=== PATIENT | male | born 1950 | race Caucasian/White ===

== ENCOUNTER 2016-10-04 11:44 | Inpatient (IN) ==
[~2016-10-04 11:44] MED LIST: Aminoglycoside Consult 1 EACH MC ONE
[2016-10-04 12:13] LABS: ABG Base Excess 9.3 mEq/L (-2.0 to 3.0); ABG HCO3 41.2 mEQ/L (21-27); ABG Oxygen Saturation 96 % (95-98); ABG PH 7.25 pH Units (7.32-7.45); ABG PO2 97 mmHg (85-104); ABG TCO2 44.1 mEq/L (20-26)
[2016-10-04 12:14] LABS: Blood Gas FiO2 45 %
[2016-10-04 12:17] LABS: ABG PCO2 94 mmHg (35-45)
--- NOTE | 2016-10-04 12:18 | Emergency Department Note ---
Disposition Clinical Impression: Acute exacerbation of chronic obstructive airways disease, Respiratory distress Cellulitis Qualifiers: Site of cellulitis: extremity Site of cellulitis of extremity: lower extremity Laterality: left Qualified Code(s): L03.116 - Cellulitis of left lower limb Disposition: Admitted As Inpatient Condition: Fair [facility]errals: [facility] [Primary Care Provider] - Forms: ED Satisfaction Letter SOB HPI - General Chief Complaint: ED Shortness of Breath/Dyspnea Stated Complaint: Respiratory Distress Time Seen by Provider: 10/04/16 11:55 Source: patient, EMS, other (Signout from [facility]) Mode of arrival: EMS Limitations: no limitations Nursing Notes Reviewed: Yes Vital Signs Reviewed: Yes - History of Present Illness She is a 66-year-old white male with a history of CHF as well as COPD who presents to the emergency department by EMS today sent from the [facility] in respiratory distress. Patient states for the last 4 days he has had gradually worsening shortness of breath occasional nonproductive cough and complaining of some generalized fatigue and weakness. Patient arrives by EMS on BiPAP but is awake alert and oriented 4, no acute deficits, and is denying any chest pain pressure or heaviness, no abdominal pain or flank pain his only complaint is shortness of breath which he is reporting on arrival much improved from when he presented at the [facility] initially. Patient denies any fevers or chills, no sore throat or difficult swallowing, no other associated symptoms. Reviewing medic report patient was diagnosed with CHF in the left alert shimmery ulcer, which is given steroids IV do an abscess prior to arrival to the ER here, had labs drawn including a negative troponin and a BNP that was elevated with 3+ bilateral lower extremity pitting edema. Patient reports in regards to his leg that he bumped it about 3 days ago states that it got swollen and warm and then broke open and he has had drainage from it and increased pain since that time. Patient denies any difficulty ambulating due to this swelling and pain. She states over the last 4 days he has been borrowing her brother's aerosol machine for an occasional breathing treatment that he normally does not have this for himself despite his history of COPD. - Related Data Allergies Allergy/AdvReac Type Severity Reaction Status Date / Time amitriptyline Allergy Anaphylaxis Verified 10/04/16 11:59 gabapentin Allergy Anaphylaxis Verified 10/04/16 11:59 pravastatin Allergy Anaphylaxis Verified 10/04/16 11:59 All systems ED: reviewed and negative except as stated. Constitutional: Denies: fever, chills Eyes: Denies: vision change ENT ED: Denies: ear pain, dental pain, dysphagia Cardiovascular: Reports: edema. Denies: chest pain, palpitations, dyspnea on exertion, orthopnea, syncope, paroxysmal nocturnal dyspnea Respiratory: Reports: cough, dyspnea, wheezes. Denies: hemoptysis, stridor, sputum production Gastrointestinal: Denies: abdominal pain, nausea, vomiting, diarrhea Genitourinary: Denies: urgency, dysuria, frequency Musculoskeletal: Denies: back pain, neck pain, joint swelling, arthralgia, myalgia Integumentary: Reports: rash, other (Open ulceration to the anterior left lower extremity.) Neurological: Denies: headache, weakness, numbness, paresthesias, confusion Psychiatric: Denies: anxiety, depression Hematological/Lymphatic: Denies: easy bleeding, easy bruising Past Medical History - Past Medical History Medical history: Reports: CHF, COPD, hepatitis, hypertension, peripheral artery disease Psychiatric history: Reports: anxiety, depression, PTSD - Social History Smoking Status: Current every day smoker Smokeless Tobacco Status: No Alcohol use: Reports: none Drug use: Reports: none Physical Exam - General Limitations: no limitations General appearance: alert, in distress, other (Patient arrives awake alert and oriented 4 with mild tachypnea and on BiPAP) - Head Head exam: atraumatic, normocephalic, normal inspection - Eye Eye exam: Present: normal appearance, PERRL, EOMI - ENT ENT exam: normal exam, normal oropharynx, mucous membranes moist - Neck Neck exam: Present: normal inspection, full ROM. Absent: lymphadenopathy, thyromegaly - Chest Chest inspection: Present: normal inspection, symmetric chest wall rise. Absent : tenderness, rash - Respiratory Respiratory exam: Present: respiratory distress, wheezes. Absent: accessory muscle use, prolonged expiratory phase - Cardiovascular Cardiovascular exam: Present: regular rate, normal rhythm, normal heart sounds - Abdominal Exam Abdominal exam: Present: soft, Non-Tender, normal bowel sounds - Extremities Exam Extremities exam: Present: full ROM, tenderness, normal capillary refill, pedal edema, other (Patient with 3+ pitting edema in the lower chimneys bilaterally area patient with an open ulceration to the mid left anterior tibia with surrounding erythema. No proximal streaking is noted. Compartments of the lower leg are soft) - Expanded Lower Extremity Exam Knee exam: Present: normal inspection Ankle exam: Present: normal inspection Neurovascular/Tendon exam: Present: normal capillary refill. Absent: pulse deficit, motor deficit, sensory deficit, tendon deficit Gait: not tested/not observed - Back Exam Back exam: Present: normal inspection. Absent: tenderness, CVA tenderness (R), CVA tenderness (L), paraspinal tenderness, vertebral tenderness - Neurological Exam Neurological exam: Present: alert, oriented X3, CN II-XII intact, reflexes normal. Absent: motor sensory deficit - Psychiatric Psychiatric exam: Present: normal affect, normal mood - Skin Skin exam: Present: warm, dry, intact, normal color Course Course Narrative: Patient was seen on arrival to the ED due to reports of respiratory distress in route. Patient had BiPAP in place on arrival but was communicating without conversational dyspnea, reporting that his breathing was much improved. Patient denied any other associated symptoms. Patient was placed on a laboratory monitor continuous pulse ox IV saline well was established prior to arrival here. Labs were drawn and sent portal chest x-ray was obtained and an EKG was obtained. Chin arrives hemodynamically stable with O2 sats at 98% on BiPAP. He was continued on BiPAP an ABG was obtained. - Reevaluation(s) Reevaluation #1: Patient's initial EKG the computer's calling an anterior [place]. We did a repeat scan showing [address] elevation in lead V3 which seems new from his prior EKG that was done earlier today at the [facility]. This does not meet criteria but I a.m. having the tech send the EKGs to the Radio Director currently to have the monkey keeper review them. It is 12:10 PM, patient is pain-free and denies any form of chest pain at this time. Reevaluation #2: To Dr. Lambert by phone who reviewed the EKGs and agrees that this does not meet criteria for an anterior STEMI and patient is asymptomatic with no abdominal pain chest pain pressure or heaviness. He agrees to hold off on any STEMI alert and is sending his mid-level down to evaluate the patient. I just checked on the patient again vital signs are stable his mentation is good he stating that he feels much better from a respiratory standpoint and again is denying any chest pain pressure or heaviness. Time: 12:32 Reevaluation #3: Patient continues to do well on BiPAP and his mental status has been stable throughout his ED course despite his elevated CO2 on his ABG. Patient actually states that his breathing feels "much better". Clinically I would contemplates switching him over to nasal cannula oxygen due to his retain CO2 all leave him on BiPAP at this time. Patient had blood cultures and wound cultures obtained. Antibiotics were initiated for his COPD exacerbation as well as his left lower extremity infection. Patient has remained hemodynamically stable throughout his ED course. Cardiology was consulate and saw the patient in the ED. I spoke with Dr. Lambert by phone and he agrees that the patient does not have criteria meeting STEMI and is pain-free at this time with serial troponins at 0.00. They will continue to follow patient. I spoke with the hospitalist who accepted the patient for admission and ongoing treatment. Vital Signs Temperature 98.1 F 10/04/16 11:47 Pulse Rate 83 10/04/16 11:47 Respiratory Rate 14 10/04/16 11:47 Blood Pressure 125/77 10/04/16 11:47 O2 Sat by Pulse Oximetry 98 10/04/16 11:47 Temperature 98.1 F 10/04/16 11:47 Pulse Rate 82 10/04/16 13:22 Respiratory Rate 18 10/04/16 13:22 Blood Pressure 125/77 10/04/16 13:22 O2 Sat by Pulse Oximetry 100 10/04/16 13:22 Oxygen Delivery Oxygen Delivery Bipap Shortness of Breath/Dyspnea - Medical Records Medical records reviewed: Yes I reviewed the patient's medical records. - Lab Data Lab results reviewed: Yes I reviewed the patient's lab results. Result diagrams: 10/04/16 12:15 10/04/16 12:15 Lab Results 10/04/16 10/04/16 10/04/16 Range/Units 12:07 12:15 12:15 WBC 11.4 H (4.3-11.1) K/mcL RBC 5.18 (4.19-5.50) M/mcL Hgb 15.6 (12.9-16.9) g/dL Hct 47.9 (37.5-50.1) % MCV 92.5 (83.0-100.0) fL MCH 30.1 (28.0-33.3) pg MCHC 32.6 (31.6-35.5) g/dL RDW 12.9 (11.5-14.5) % Plt Count 174 (140-400) K/mcL MPV 9.4 (9.4-12.4) fL Immature Gran % 0.4 (0-4) % Seg Neutrophils % 94.4 % Lymphocytes % 2.9 % Monocytes % 2.1 % Eosinophils % 0.0 % Basophils % 0.2 % Neutrophils # 10.8 H (1.6-8.9) K/mcL Lymphocytes # 0.3 L (0.6-4.6) K/mcL Monocytes # 0.2 (0.0-1.3) K/mcL Eosinophils # 0.0 (0.0-0.6) K/mcL Basophils # 0.0 (0.0-0.2) K/mcL PT (9.4-12.1) Seconds INR APTT (26.0-36.0) Seconds ABG pH 7.25 L (7.32-7.45) pH Units ABG pCO2 94 H* (35-45) mmHg ABG pO2 97 (85-104) mmHg ABG HCO3 41.2 H (21-27) mEQ/L ABG Total CO2 44.1 H (20-26) mEq/L ABG O2 Saturation 96 (95-98) % ABG Base Excess 9.3 H (-2.0 to 3.0) mEq/L Blood Gas Modality BIPAP Inspired O2 45 % Sodium 133 L (136-145) mEq/L Potassium 5.1 H (3.5-4.5) mEq/L Chloride 89 L (98-109) mEq/L Carbon Dioxide 37 H (19-29) mEq/L BUN 16 (8-26) mg/dL Creatinine 0.84 (0.72-1.25) mg/dL Est GFR ( Amer) > 60 (> 60) Est GFR (Non-Af Amer) > 60 (> 60) BUN/Creatinine Ratio 19 (6-26) Glucose 130 H (70-99) mg/dL POC Glucose (58-89) Calculated Osmolality 279 L (280-300) Lactic Acid (0.5-2.2) mmol/L Calcium 8.5 L (8.6-10.8) mg/dL Total Bilirubin 0.6 (0.2-1.2) mg/dL Direct Bilirubin 0.3 (0.0-0.5) mg/dL Indirect Bilirubin 0.3 (0.0-1.2) mg/dL AST 14 (5-34) Units/L ALT 21 (0-55) Units/L Alkaline Phosphatase 88 (38-126) Units/L Troponin I (0-0.03) ng/mL B-Natriuretic Peptide (0-100) pg/mL Serum Total Protein 7.3 (6.0-8.3) g/dL Albumin 3.3 L (3.5-5.0) g/dL Globulin 4.0 H (2.4-3.5) g/dL Albumin/Globulin Ratio 0.8 L (1.1-2.2) 10/04/16 10/04/16 10/04/16 Range/Units 12:15 12:15 12:15 WBC (4.3-11.1) K/mcL RBC (4.19-5.50) M/mcL Hgb (12.9-16.9) g/dL Hct (37.5-50.1) % MCV (83.0-100.0) fL MCH (28.0-33.3) pg MCHC (31.6-35.5) g/dL RDW (11.5-14.5) % Plt Count (140-400) K/mcL MPV (9.4-12.4) fL Immature Gran % (0-4) % Seg Neutrophils % % Lymphocytes % % Monocytes % % Eosinophils % % Basophils % % Neutrophils # (1.6-8.9) K/mcL Lymphocytes # (0.6-4.6) K/mcL Monocytes # (0.0-1.3) K/mcL Eosinophils # (0.0-0.6) K/mcL Basophils # (0.0-0.2) K/mcL PT (9.4-12.1) Seconds INR APTT (26.0-36.0) Seconds ABG pH (7.32-7.45) pH Units ABG pCO2 (35-45) mmHg ABG pO2 (85-104) mmHg ABG HCO3 (21-27) mEQ/L ABG Total CO2 (20-26) mEq/L ABG O2 Saturation (95-98) % ABG Base Excess (-2.0 to 3.0) mEq/L Blood Gas Modality Inspired O2 % Sodium (136-145) mEq/L Potassium (3.5-4.5) mEq/L Chloride (98-109) mEq/L Carbon Dioxide (19-29) mEq/L BUN (8-26) mg/dL Creatinine (0.72-1.25) mg/dL Est GFR ( Amer) (> 60) Est GFR (Non-Af Amer) (> 60) BUN/Creatinine Ratio (6-26) Glucose (70-99) mg/dL POC Glucose (58-89) Calculated Osmolality (280-300) Lactic Acid 1.1 (0.5-2.2) mmol/L Calcium (8.6-10.8) mg/dL Total Bilirubin (0.2-1.2) mg/dL Direct Bilirubin (0.0-0.5) mg/dL Indirect Bilirubin (0.0-1.2) mg/dL AST (5-34) Units/L ALT (0-55) Units/L Alkaline Phosphatase (38-126) Units/L Troponin I 0.00 (0-0.03) ng/mL B-Natriuretic Peptide 272 H (0-100) pg/mL Serum Total Protein (6.0-8.3) g/dL Albumin (3.5-5.0) g/dL Globulin (2.4-3.5) g/dL Albumin/Globulin Ratio (1.1-2.2) 10/04/16 10/04/16 Range/Units 12:15 12:43 WBC (4.3-11.1) K/mcL RBC (4.19-5.50) M/mcL Hgb (12.9-16.9) g/dL Hct (37.5-50.1) % MCV (83.0-100.0) fL MCH (28.0-33.3) pg MCHC (31.6-35.5) g/dL RDW (11.5-14.5) % Plt Count (140-400) K/mcL MPV (9.4-12.4) fL Immature Gran % (0-4) % Seg Neutrophils % % Lymphocytes % % Monocytes % % Eosinophils % % Basophils % % Neutrophils # (1.6-8.9) K/mcL Lymphocytes # (0.6-4.6) K/mcL Monocytes # (0.0-1.3) K/mcL Eosinophils # (0.0-0.6) K/mcL Basophils # (0.0-0.2) K/mcL PT 11.9 (9.4-12.1) Seconds INR 1.1 APTT 27.5 (26.0-36.0) Seconds ABG pH (7.32-7.45) pH Units ABG pCO2 (35-45) mmHg ABG pO2 (85-104) mmHg ABG HCO3 (21-27) mEQ/L ABG Total CO2 (20-26) mEq/L ABG O2 Saturation (95-98) % ABG Base Excess (-2.0 to 3.0) mEq/L Blood Gas Modality Inspired O2 % Sodium (136-145) mEq/L Potassium (3.5-4.5) mEq/L Chloride (98-109) mEq/L Carbon Dioxide (19-29) mEq/L BUN (8-26) mg/dL Creatinine (0.72-1.25) mg/dL Est GFR ( Amer) (> 60) Est GFR (Non-Af Amer) (> 60) BUN/Creatinine Ratio (6-26) Glucose (70-99) mg/dL POC Glucose 139 H (58-89) Calculated Osmolality (280-300) Lactic Acid (0.5-2.2) mmol/L Calcium (8.6-10.8) mg/dL Total Bilirubin (0.2-1.2) mg/dL Direct Bilirubin (0.0-0.5) mg/dL Indirect Bilirubin (0.0-1.2) mg/dL AST (5-34) Units/L ALT (0-55) Units/L Alkaline Phosphatase (38-126) Units/L Troponin I (0-0.03) ng/mL B-Natriuretic Peptide (0-100) pg/mL Serum Total Protein (6.0-8.3) g/dL Albumin (3.5-5.0) g/dL Globulin (2.4-3.5) g/dL Albumin/Globulin Ratio (1.1-2.2) - Radiology Data Radiology results reviewed: Yes I reviewed the patient's radiology results. Chest X-Ray 10/04/16 11:55 IMPRESSION: No acute cardiopulmonary disease. D/ / Syed Patel MD / Syed Patel MD Interpreting Provider: Syed Patel MD - EKG Data EKG attestation: Yes I reviewed and interpreted this EKG. EKG results narrative: Patient's first EKG was obtained at 11:59 AM, showing a normal sinus rhythm at 78 bpm with borderline [address] elevation isolated in V3. No reciprocal changes seen this was unchanged from prior EKG that was done earlier today at the [facility]. Due to some normality repeat EKG was obtained read at 12:15 PM showing a normal sinus rhythm with occasional sinus arrhythmia at [address] change isolated to V3. Critical Care Time Critical Care Time: Yes Total Critical Care Time: 35 Attestation: The high probability of a clinically significant, sudden or life threatening deterioration of the [resp] system(s) required my full and direct attention, intervention and personal management. The aggregate critical care time was [30] minutes. This time is in addition to time spent performing reported procedures but includes the following: [x] Data Review and interpretation [x] Patient assessment and monitoring of vital signs [x] Documentation [x] Medication orders and management
[2016-10-04 12:25] LABS: Basophils % 0.2 %; Hematocrit 47.9 % (37.5-50.1); Hemoglobin 15.6 g/dL (12.9-16.9); Immature Granulocytes % 0.4 % (0-4); Lymphocytes # 0.3 K/mcL (0.6-4.6); Lymphocytes % 2.9 %; Mean Corpuscular HGB Conc 32.6 g/dL (31.6-35.5); Mean Corpuscular Hemoglobin 30.1 pg (28.0-33.3); Mean Corpuscular Volume 92.5 fL (83.0-100.0); Mean Platelet Volume 9.4 fL (9.4-12.4); Monocytes # 0.2 K/mcL (0.0-1.3); Monocytes % 2.1 %; Neutrophils # 10.8 K/mcL (1.6-8.9); Platelet Count 174 K/mcL (140-400); Red Blood Count 5.18 M/mcL (4.19-5.50); Red Cell Distribution Width 12.9 % (11.5-14.5); Segmented Neutrophils % 94.4 %
[2016-10-04 12:29] LABS: INR 1.1; Prothrombin Time 11.9 Seconds (9.4-12.1)
[2016-10-04 12:32] LABS: Activated Partial Thrombo Time 27.5 Seconds (26.0-36.0)
[2016-10-04 12:39] LABS: Alanine Aminotransferase 21 Units/L (0-55); Albumin 3.3 g/dL (3.5-5.0); Albumin/Globulin Ratio 0.8 (1.1-2.2); Alkaline Phosphatase 88 Units/L (38-126); Aspartate Amino Transferase 14 Units/L (5-34); BUN/Creatinine Ratio 19 (6-26); Bilirubin,Direct 0.3 mg/dL (0.0-0.5); Bilirubin,Indirect 0.3 mg/dL (0.0-1.2); Bilirubin,Total 0.6 mg/dL (0.2-1.2); Blood Urea Nitrogen 16 mg/dL (8-26); Calcium 8.5 mg/dL (8.6-10.8); Carbon Dioxide 37 mEq/L (19-29); Chloride 89 mEq/L (98-109); Glucose 130 mg/dL (70-99); Osmolality,Calculated 279 (280-300); Potassium 5.1 mEq/L (3.5-4.5); Sodium 133 mEq/L (136-145); Total Protein 7.3 g/dL (6.0-8.3); eGFR For African Americans > 60 (> 60); eGFR For Non-African Americans > 60 (> 60)
--- NOTE | 2016-10-04 13:02 | Cardiology Consult Note ---
Date of Encounter: 10/04/16 Time of Encounter: 12:45 Assessment and Plan (1) Abnormal ECG Status: Acute Per Cardiology: Mild ST elevation noted in V1-V3 consistent with LVH-- ECG reviewed and discussed with Dr. Lambert, no cath warranted at this juncture. No previous ECG for comparison. Troponin negative this morning at the [facility] and currently negative 0.00 now. Denies any chest pain. Further recommendations pending echo. (2) SOB (shortness of breath) Status: Acute Per Cardiology: Reported increase in shortness of breath over the past one week. Has past history of COPD and reach records obstructive sleep apnea. Appears slightly improved with BiPAP. Further management per primary service. (3) COPD exacerbation Status: Acute Per Cardiology: Suspected acute on chronic COPD exacerbation. Again, management per primary service. (4) Edema Status: Acute Per Cardiology: Reported worsening bilateral lower extremity edema, however also reported altered on weight loss. Reportedly takes Lasix 60 mg by mouth daily at home and history of CHF. No previous echo available for review. Kidney function currently stable. Does have significant pitting edema. BNP from [facility] noted to be 2368, however BMP at [facility] 272. We'll give IV Lasix 40 mg 1 now. We'll check echo. Qualifiers: Edema type: unspecified Qualified Code(s): R60.9 - Edema, unspecified (5) Leg ulcer, left Status: Acute Per Cardiology: Apparent new development of left medial leg ulcer. According to records history of PAD, however patient denies any procedures. Rec consult wound care. Qualifiers: Non-pressure ulcer stage: unspecified non-pressure ulcer stage Qualified Code(s): L97.929 - Non-pressure chronic ulcer of unspecified part of left lower leg with unspecified severity (6) Nicotine abuse Status: Chronic Per Cardiology: History of smoking half a pack per day for 40 years. Recommend smoking cessation. Discussion w patient/family: The assessment and plan as outlined above was discussed with the patient and/or family members who expressed understanding and agreement. All questions were answered. Thank you for involving us in the care of your patient. Please call with any questions. History of Present Illness Consult date: 10/04/16 Consult reason: SOB, Abnormal ECG Chief complaint: SOB, Leg sore History of present illness: Mr. Nesbitt is a 66 year old male with a relevant past medical history of COPD, nicotine abuse-- reported he smokes a half a pack per day for 40 years, CHF on Lasix 60 mg by mouth daily at home, hypertension, anxiety, depression, PTSD, according to records alcohol abuse, substance abuse, and history of hepatitis-- patient denies any alcohol use, any recreational drug use, and any awareness to hepatitis. Patient reports negative stress test about 3 years ago. No known history of CAD. Cardiology consult for short of breath, abnormal ECG, and worsening edema. The patient initially confused onto his current location -- was aware to person and year. Reports lives in [place] and brought to the [facility] for worsening shortness of breath. He was unaware of transfer to [facility]. Patient reports increased shortness of breath at rest and exertion over the past one week. He also reports increased swelling to bilateral lower extremities with "Lasix not making me pee the past few days". He denies any chest pain currently or in the past 2 weeks. He denies any palpitations, syncope, falls. Reports some mild lightheadedness. He denies any history of TIA or stroke. He denies any active bleeding or blood loss. Denies any recent fever, chills, nausea, vomiting diarrhea. Reports nonproductive cough. Does not utilize oxygen at home. Reports left leg wound developed about 3 days ago when he bumped against a piece of furniture. He denies any diabetes. He does report about a 12 pound weight loss unintentionally over the past one month, however does report increased swelling to bilateral lower extremities. Past Med Surg Social Fam HX - Past Medical History Attestation: Yes The following information was validated with the patient. Source: patient, old records reviewed Medical history: CHF, COPD, hepatitis, hypertension, peripheral artery disease Psychiatric history: anxiety, depression, PTSD - Social History Smoking Status: Current every day smoker Packs per day: 1/2 ppd for 40 years Smokeless Tobacco Status: No Alcohol use: none Drug use: none Medications and Allergies 3 Allergy/AdvReac Type Severity Reaction Status Date / Time amitriptyline Allergy Anaphylaxis Verified 10/04/16 11:59 gabapentin Allergy Anaphylaxis Verified 10/04/16 11:59 pravastatin Allergy Anaphylaxis Verified 10/04/16 11:59 All Systems Review: A 10-system review of systems was performed and is negative for pertinent findings except as documented above in the HPI. - Constitutional Constitutional: weight loss - Cardiovascular Cardiovascular: as per HPI, dyspnea at rest, dyspnea on exertion, leg edema, lightheadedness - Respiratory Respiratory: cough, dyspnea - Integumentary Integumentary: other (foot wound from 3 days ago) Physical Examination Vital Signs, Last 4 Hours Temp Pulse Resp BP Pulse Ox 10/04/16 11:56 18 99 10/04/16 11:47 98.1 F 83 14 125/77 98 General: Conversant HEENT: Atraumatic, Normocephaly, Mucus Membranes Moist Cardiac: Reg Rate and Rhythm, Normal S1 and S2, No Murmur Lungs: Other (Seen today on BiPAP, conversational dyspnea noted, breath sounds diminished throughout, respirations mild labored at rest, scattered rhonchi throughout) Neuro: Alert and responsive, No focal deficits noted Abdomen: Soft, Non-Tender, Other (Non-strangulated umbilical hernia noted) Skin: Other (Left lower extremity erythematous, dusky colored, quarter-sized open wound noted to left medial lower extremity) Musculoskeletal: No Chest Wall Tenderness Extremities: Other (Bilateral lower extremities with edema-- +2 pitting R RLE, + 2-3 pitting to left lower extremity) Results 10/04/16 12:15 10/04/16 12:15 Lab Results Laboratory Tests 10/04/16 10/04/16 12:07 12:15 WBC 11.4 H Hgb 15.6 Hct 47.9 Plt Count 174 ABG pH 7.25 L ABG pCO2 94 H* ABG pO2 97 ABG HCO3 41.2 H Blood Gas Modality BIPAP Inspired O2 45 Laboratory Tests 10/04/16 10/04/16 10/04/16 12:15 12:15 12:15 INR Creatinine 0.84 Est GFR (Non-Af Amer) > 60 Glucose 130 H AST 14 ALT 21 Troponin I 0.00 B-Natriuretic Peptide 272 H 10/04/16 12:15 INR 1.1 Creatinine Est GFR (Non-Af Amer) Glucose AST ALT Troponin I B-Natriuretic Peptide ITS Impressions Chest X-Ray 10/04/16 11:55 IMPRESSION: No acute cardiopulmonary disease. D/ / Syed Patel MD / Syed Patel MD Interpreting Provider: Syed Patel MD - Imaging and Cardiology Chest Xray: report reviewed Echo: pending - EKG Interpretation EKG results cardiology: personally reviewed (Very mild ST elevation noted in V1 through V3, ECG reviewed by Dr. Lambert with no recs for equipment operator/laborer/supervisor activation, no previous ECGs available for comparison, currently sinus rhythm on telemetry) Consult Discharge Plan - Plan
[2016-10-04] MEDS ORDERED: Furosemide 40 MG/4 ML VIAL IVP ONE (13:09)
[2016-10-04] MEDS ORDERED: Levofloxacin 500 MG/100 ML 500 MG/100 ML BAG IVPB ONE (13:18)
[2016-10-04] MEDS ORDERED: Vancomycin 1,000 MG in D5% in Water 250 ML IVPB ONE (13:19)
--- NOTE | 2016-10-04 14:45 | Internal Med History&Physical ---
<Osman Johnson - Last Filed: 10/04/16 18:12> Date of Encounter: 10/04/16 Time of Encounter: 15:01 Assessment and Plan (1) COPD exacerbation Current visit: Yes Status: Acute increased SOB x4-5 days. CXR: no acute process Plan: azithromycin PO patient was on steroid taper at home, will continue PO steroid taper scheduled DuoNebs (2) Cellulitis Current visit: Yes Status: Acute patient has history of PVD. on exam, left lower extremity appears cyanotic and cold, pulses could not be felt. 2x3cm wound present on left bailey anteriorly, no crepitus appreciated. Plan: appreciate vascular surgery consult vancomycin- pharmacy to dose left lower extremity wound cultures pending. blood cultures pending. MILADYS pending. (3) Leg ulcer, left Current visit: Yes Status: Acute plan as above. (4) Abnormal ECG Current visit: Yes Status: Acute upon arrival, EKG showed ST changes. troponin at [facility] was negative. Appreciate cardiology input per cardiology, no cath warranted at this time. no chest pain at this time. Plan: echo pending. trend troponins and monitor (5) Nicotine abuse Current visit: Yes Status: Chronic smoking cesation advised. nicotine patch PRN (6) MAC (obstructive sleep apnea) Current visit: Yes Status: Acute continue BiPAP at night. (7) DVT prophylaxis Current visit: Yes Status: Acute heparin SQ Internal Medicine - H&P: HPI Chief complaint: shortness of breath Admitted From: Emergency Dept Plans for Post Hospital Care: Home History of present illness: Mr. Nesbitt is a 66 year old male with PMHx of COPD (not on home oxygen), tobacco use, CHF, history of hepatitis, HTN, peripheral vascular disease. patient lives by himself at home. he was admitted to [facility] as a transfer from the [facility] for chief complaint of shortness of breath. patient states that he was having shortness of breath with minimal exertion for 4-5 days that has been getting progressively worse. he also reports left leg pain. patient denies chest pain, cough, hemoptysis. he does smoke and has smoked for about 40 years, 1/2 packs per day. he denies nausea, vomiting, diarrhea, fever, chills, hemoptysis, blood in stools, and denies blood in urine. 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 Patient states that recent sick contacts include his son, who had bronchitis about a month ago. he has not been on any antibiotics recently. Past Med Surg Social Fam HX - Past Medical History Medical history: CHF, COPD, hepatitis, hypertension, peripheral artery disease Psychiatric history: anxiety, depression, PTSD - Social History Smoking Status: Current every day smoker Packs per day: 1/2 ppd for 40 years Smokeless Tobacco Status: No Alcohol use: none Drug use: none Internal Medicine - H&P: Meds Allopurinol [Zyloprim 100 MG] 100 mg PO DAILY 10/04/16 [History] Atorvastatin Calcium [Lipitor] 20 mg PO HS 10/04/16 [History] Ipratropium/Albuterol Neb [Duoneb] 3 ml IH Q6HR PRN 10/04/16 [History] Losartan Potassium [Cozaar] 50 mg PO BID 10/04/16 [History] Mupirocin [Bactroban Oint] 1 appl TP AD 10/04/16 [History] Tacrolimus [Protopic] 1 appl TP AD 10/04/16 [History] hydroCHLOROthiazide [Hydrochlorothiazide] 12.5 mg PO DAILY 10/04/16 [History] predniSONE [PredniSONE] 5 mg PO AD 10/04/16 [History] 3 Allergy/AdvReac Type Severity Reaction Status Date / Time amitriptyline Allergy Anaphylaxis Verified 10/04/16 14:24 gabapentin Allergy Anaphylaxis Verified 10/04/16 14:24 pravastatin Allergy Anaphylaxis Verified 10/04/16 14:24 All Systems PM: A 10-system review of systems was performed and is negative for pertinent findings except as documented above in the HPI. - Constitutional Constitutional: as per HPI - EENT Eyes: as per HPI Ears: as per HPI Nose, mouth and throat: as per HPI - Breasts Breasts: as per HPI - Cardiovascular Cardiovascular ROS IM: as per HPI - Respiratory Respiratory: as per HPI - Gastrointestinal Gastrointestinal: as per HPI - Genitourinary Genitourinary ROS male: as per HPI - Musculoskeletal Musculoskeletal ROS IM: as per HPI - Integumentary Integumentary IM: as per HPI - Neurological Neurological ROS: as per HPI - Psychiatric Psychiatric: as per HPI - Endocrine Endocrine IM: as per HPI - Hematologic/Lymphatic Hematologic/Lymphatic: as per HPI - Allergic/Immunologic Allergic/Immunologic: as per HPI - Constitutional Vitals: Temp Pulse Resp BP Pulse Ox 97.6 F 80 15 129/72 98 10/04/16 14:31 10/04/16 14:31 10/04/16 14:31 10/04/16 14:31 10/04/16 14:31 General appearance: Present: A&O X 3, no acute distress, answers questions appropriately - Head Head exam: Present: atraumatic, normocephalic - Neck Neck exam general surgery: Present: supple, trachea midline - Respiratory Respiratory exam: Present: decreased breath sounds - Cardiovascular Cardiovascular exam: Present: RRR, +S1, +S2 - GI/Abdominal Additional comments: abdominal hernia present above umbillicus. - Extremities Exam Extremities exam: Present: cyanotic (cyanosis present on left leg) Additional comments: left leg has [id number] wound present on the antior bailey that has yellwo colored pus coming out. left leg is cyanotic. both bilateral lower extremities feel cold. pulses could not be palpated. +2 bilateral lower extremity pitting edema present. - Neurological Exam Neurological exam: Present: alert, oriented X3, no focal deficits - Psychiatric Psychiatric exam: Present: normal affect, normal mood Internal Med - H&P Results - Labs CBC & Chem 7: 10/04/16 12:15 10/04/16 12:15 <Willem Noguera P - Last Filed: 10/04/16 18:25> Date of Encounter: 10/04/16 Internal Medicine - H&P: HPI History of present illness: Mr. Nesbitt is a 66 year old male All Systems PM: A 10-system review of systems was performed and is negative for pertinent findings except as documented above in the HPI. - Constitutional Vitals: Temp Pulse Resp BP Pulse Ox 97.6 F 80 15 129/72 98 10/04/16 14:31 10/04/16 14:31 10/04/16 14:31 10/04/16 14:31 10/04/16 14:31 Internal Med - H&P Results - Labs CBC & Chem 7: 10/04/16 12:15 10/04/16 12:15 - Attending Attestation I examined this patient and my medical decision-making was reviewed with the Resident Physician. I agree with the documented findings, disposition and treatment plan as described except to the extent set forth below.
[2016-10-04] MEDS ORDERED: Ipratropium/Albuterol Neb 3 ML IH PRN (15:25)
[2016-10-04] MEDS ORDERED: Acetaminophen 325 MG TABLET PO PRN (15:28)
[2016-10-04] MEDS ORDERED: Nicotine 7 MG PATCH.TD24 TD PRN (15:42)
[2016-10-04] MEDS ORDERED: Vancomycin 1,250 MG in D5% in Water 250 ML IVPB SCH ×2 (16:00→23:30)
[2016-10-04] MEDS ORDERED: predniSONE 5 MG TABLET PO SCH (18:15)
--- NOTE | 2016-10-04 18:18 | Vascular/Endovasc Consult Note ---
<Stephen Skinner - Last Filed: 10/05/16 09:35> Date of Encounter: 10/05/16 Time of Encounter: 04:45 Assessment and Plan (1) Leg ulcer, left Current Visit: Yes Status: Acute ABIs 0.97 R, 0.76 L Chronic PVD, not concerned for acute cold leg Continue IV abx for surrounding cellulitis Wound cultures sent Local wound care Qualifiers: Non-pressure ulcer stage: unspecified non-pressure ulcer stage Qualified Code(s): L97.929 - Non-pressure chronic ulcer of unspecified part of left lower leg with unspecified severity (3) Cellulitis Current Visit: Yes Status: Acute See plan of care above Qualifiers: Site of cellulitis: extremity Site of cellulitis of extremity: lower extremity Laterality: left Qualified Code(s): L03.116 - Cellulitis of left lower limb - History of Present Illness Consult date: 10/04/16 Consult reason: Cold LLE with cellulitis Chief complaint: SOB History of present illness: Cordell Nesbitt is a 66 yo male with an extensive PMH including, COPD, CHF, hepatitis, HTN, and PVD who presents to [facility] with chief complaint of SOB. We are consulted for cold LLE with cellulitis. Patient states that he has not seen a doctor in some time and has stopped taking all home medications. He states that about 1 week ago he struck his bailey against some living room furniture, which left a wound on his left lower bailey. The area surrounding the wound grew red and it started draining serous fluid. He admits to chronic edema related to CHF and chronic neuropathy of both feet. He denies weakness of any extremity. He admits to SOB and denies CP. Past Med Surg Social Fam HX - Past Medical History Medical history: CHF, COPD, hepatitis, hypertension, peripheral artery disease Psychiatric history: anxiety, depression, PTSD - Social History Smoking Status: Current every day smoker Packs per day: 1/2 ppd for 40 years Smokeless Tobacco Status: No Alcohol use: none Drug use: none Medications and Allergies Allopurinol [Zyloprim 100 MG] 100 mg PO DAILY 10/04/16 [History] Atorvastatin Calcium [Lipitor] 20 mg PO HS 10/04/16 [History] Ipratropium/Albuterol Neb [Duoneb] 3 ml IH Q6HR PRN 10/04/16 [History] Losartan Potassium [Cozaar] 50 mg PO BID 10/04/16 [History] Mupirocin [Bactroban Oint] 1 appl TP AD 10/04/16 [History] Tacrolimus [Protopic] 1 appl TP AD 10/04/16 [History] hydroCHLOROthiazide [Hydrochlorothiazide] 12.5 mg PO DAILY 10/04/16 [History] predniSONE [PredniSONE] 5 mg PO AD 10/04/16 [History] 3 Allergy/AdvReac Type Severity Reaction Status Date / Time amitriptyline Allergy Anaphylaxis Verified 10/04/16 14:24 gabapentin Allergy Anaphylaxis Verified 10/04/16 14:24 pravastatin Allergy Anaphylaxis Verified 10/04/16 14:24 All Systems Review: A 10-system review of systems was performed and is negative for pertinent findings except as documented above in the HPI. - Vascular Vascular: lower extremity swelling, lower extremity ulcers, lower extremity discoloration, lower extremity coldness - Integumentary Integumentary: erythema, swelling Exam Vital Signs, Last 4 Hours Temp Pulse Resp BP Pulse Ox 10/04/16 14:31 97.6 F 80 15 129/72 98 10/04/16 14:17 18 122/78 Vascular: Present: Pulse, absent (b/l LEs), Edema (extensive, all extremities), Other (venous stasis changes) Skin: Present: Wound/ulcer(s) (2-3 cm diameter lesion on medial surface of L bailey, draining some serous fluid. Erythema of the surrounding area with increased warmth) Consult Discharge Plan - Plan [facility]errals: [facility] [Primary Care Provider] - <Michael Ferrer - Last Filed: 10/05/16 10:15> Date of Encounter: 10/05/16 - History of Present Illness History of present illness: Mr. Nesbitt is a 66 year old male All Systems Review: A 10-system review of systems was performed and is negative for pertinent findings except as documented above in the HPI. Exam Vital Signs, Last 4 Hours Temp Pulse Resp BP Pulse Ox 10/05/16 06:32 97.4 F L 84 14 118/64 94 - Attending Attestation I examined this patient and my medical decision-making was reviewed with the Resident Physician. I agree with the documented findings, disposition and treatment plan as described except to the extent set forth below. The patient is seen and evaluated on morning rounds. The patient has mild decrease in ankle-brachial index. He has findings consistent with acute venous stasis ulcer in a field of chronic venous hypertension on the left lower extremity. He would best be treated with an Unna boot with extrinsic compression making this a [place] boot. Aggressive leg elevation will also be required. I will be glad to follow him in wound clinic. Michael Ferrer MD FACS
[2016-10-04] MEDS ORDERED: Azithromycin 250 MG TABLET PO SCH (18:30)
[2016-10-04] MEDS: *HR* Heparin 5,000 UNIT/ML VIAL SQ SCH (18:40)
[2016-10-04] MEDS ORDERED: NON-FORMULARY MEDICATION 1 EACH EACH (Losartan Potassium [Cozaar] 50 MG) PO SCH (21:00)
[2016-10-04] MEDS ORDERED: Budesonide/Formoterol 80/4.5 MDI IH SCH (22:00)
[2016-10-04] MEDS: Ipratropium/Albuterol Neb 3 ML IH SCH (22:46)
[2016-10-05 01:56] LABS: Basophils % 0.1 %; Hematocrit 46.8 % (37.5-50.1); Hemoglobin 14.8 g/dL (12.9-16.9); Immature Granulocytes % 0.3 % (0-4); Lymphocytes # 0.5 K/mcL (0.6-4.6); Lymphocytes % 5.2 %; Mean Corpuscular HGB Conc 31.6 g/dL (31.6-35.5); Mean Corpuscular Hemoglobin 29.5 pg (28.0-33.3); Mean Corpuscular Volume 93.2 fL (83.0-100.0); Mean Platelet Volume 9.5 fL (9.4-12.4); Monocytes # 0.9 K/mcL (0.0-1.3); Monocytes % 8.9 %; Neutrophils # 8.5 K/mcL (1.6-8.9); Platelet Count 166 K/mcL (140-400); Red Blood Count 5.02 M/mcL (4.19-5.50); Red Cell Distribution Width 12.6 % (11.5-14.5); Segmented Neutrophils % 85.5 %
[2016-10-05 02:06] LABS: BUN/Creatinine Ratio 22 (6-26); Blood Urea Nitrogen 15 mg/dL (8-26); Calcium 8.7 mg/dL (8.6-10.8); Carbon Dioxide 38 mEq/L (19-29); Chloride 91 mEq/L (98-109); Glucose 125 mg/dL (70-99); Osmolality,Calculated 284 (280-300); Sodium 136 mEq/L (136-145); eGFR For African Americans > 60 (> 60); eGFR For Non-African Americans > 60 (> 60)
[2016-10-05] MEDS: Ipratropium/Albuterol Neb 3 ML IH SCH ×3 (03:45→10:45)
[2016-10-05] MEDS: *HR* Heparin 5,000 UNIT/ML VIAL SQ SCH (06:17)
[2016-10-05 06:37] VITALS: BP 118/64
[2016-10-05] MEDS ORDERED: Albuterol 2.5 MG/3 ML NEBULIZER IH PRN (08:00)
[2016-10-05] MEDS ORDERED: methylPREDNISolone 125 MG/2 ML VIAL IVP SCH (08:00)
[2016-10-05] MEDS ORDERED: ceFAZolin 2,000 MG in D5% in Water 100 ML IVPB SCH (08:02)
[2016-10-05 08:28] LABS: ABG HCO3 45.3 mEQ/L (21-27); ABG Oxygen Saturation 88 % (95-98); ABG PO2 60 mmHg (85-104); ABG TCO2 48.1 mEq/L (20-26)
[2016-10-05 08:31] LABS: Blood Gas FiO2 36 %
[2016-10-05 08:32] LABS: ABG PCO2 92 mmHg (35-45)
--- NOTE | 2016-10-05 08:42 | Cardiology Progress Note ---
Date of Encounter: 10/05/16 Time of Encounter: 08:00 Assessment and Plan (1) Abnormal ECG Current Visit: Yes Status: Acute Per Cardiology: -Mild ST elevation noted in V1-V3 consistent with LVH-- ECG reviewed and discussed with Dr. Lambert, no cath warranted at this juncture. -No previous ECG for comparison. -Troponin negative x 3 at [facility], negative at CT. -Denies any chest pain. -Echo 10/04/16 with LVEF 60%, not all myocardial segments well visualized due to patient uncooperative during testing, mild diastolic dysfunction, RV not well visualized however appears mildly dilated with normal function, mild MR, mild PH, all wall segments with normal motion. -Telemetry reviewed with average HR 84, sinus rhythm. Runs of atrial tachycardia noted, strips reviewed with . -Cardiology will sign off and will follow in outpatient setting. Follow up set. (2) COPD exacerbation Current Visit: Yes Status: Acute Per Cardiology: -Suspected acute on chronic COPD exacerbation. -Management per primary service. (3) Edema Current Visit: Yes Status: Acute Per Cardiology: -1+ bilateral lower extremity pitting edema noted, states about baseline. -Was given IV lasix x1 yesterday. Net negative 90ml this admission. -Will start home lasix dose of 60mg daily. Qualifiers: Edema type: unspecified Qualified Code(s): R60.9 - Edema, unspecified (4) Leg ulcer, left Current Visit: Yes Status: Acute Per Cardiology: -Apparent new development of left medial leg ulcer. -According to records history of PAD, however patient denies any procedures. -Vascular following. -Management per primary and vascular services. Qualifiers: Non-pressure ulcer stage: unspecified non-pressure ulcer stage Qualified Code(s): L97.929 - Non-pressure chronic ulcer of unspecified part of left lower leg with unspecified severity (5) Nicotine abuse Current Visit: Yes Status: Chronic Per Cardiology: -History of smoking half a pack per day for 40 years. -Recommended smoking cessation with patient and education given. Discussion w patient/family: The assessment and plan as outlined above was discussed with the patient who expressed understanding and agreement. All questions were answered. Thank you for involving us in the care of your patient. Please call with any questions. Discussed and reviewed with . Subjective Principal diagnosis: COPD exacerbation Interval history: Patient states he feels better this morning. Patient denies chest pain or shortness of breath. Patient states breathing is much improved since admission. Patient admits to congested cough, however states is non-productive. Objective Vital Signs, Last 4 Hours Temp Pulse Resp BP Pulse Ox 10/05/16 06:32 97.4 F L 84 14 118/64 94 General: Conversant, No Apparent Distress HEENT: Atraumatic, Normocephaly, Mucus Membranes Moist Neck: No JVD, Normal carotid pulses Cardiac: Reg Rate and Rhythm, Normal S1 and S2, No Murmur Lungs: Other (Bilateral lower lobes with rhonchi and expiratory wheezes. ) Neuro: Alert and responsive, No focal deficits noted Abdomen: Soft, Non-Tender Skin: Other (Bilateral lower extremities with discoloration noted. ) Musculoskeletal: No Chest Wall Tenderness Extremities: No Clubbing, No Cyanosis, Other (Bilateral lower extremity 1+ pitting edema noted. ) Results 10/05/16 01:05 10/05/16 01:05 Lab Results Impressions Chest X-Ray 10/04/16 11:55 IMPRESSION: No acute cardiopulmonary disease. D/ / Syed Patel MD / Syed Patel MD Interpreting Provider: Syed Patel MD Active Medications Acetaminophen (Tylenol) 650 mg PO Q6HR PRN PRN Reason: Pain Stop: 04/05/17 15:29 Albuterol Sulfate (Proventil Neb) 2.5 mg IH Q2H PRN; Protocol PRN Reason: Shortness Of Breath/Wheezing Stop: 04/06/17 08:01 Albuterol/Ipratropium (Duoneb) 3 ml IH QIDR LANA PRN Reason: Protocol Stop: 04/06/17 11:01 Allopurinol (Zyloprim) 100 mg PO DAILY [facility] Stop: 04/06/17 09:01 Atorvastatin Calcium (Lipitor) 20 mg PO HS [facility] Stop: 04/05/17 21:01 Last Admin: 10/04/16 21:58 Dose: Not Given Azithromycin (Zithromax) 500 mg PO Q24H [facility] Stop: 04/05/17 18:31 Last Admin: 10/04/16 18:40 Dose: 500 mg Guaifenesin (Mucinex) 600 mg PO BID [facility] Stop: 10/11/16 21:01 Heparin Sodium (Porcine) (Heparin) 5,000 unit SQ Q12HCO [facility] Stop: 04/05/17 18:01 Last Admin: 10/05/16 06:17 Dose: 5,000 unit Cefazolin Sodium 2,000 mg/ (Dextrose) 100 mls @ 200 mls/hr IVPB Q8HR LANA PRN Reason: Protocol Stop: 04/06/17 08:03 Methylprednisolone (Solu-Medrol) 60 mg IVP Q8HR [facility] Stop: 04/06/17 08:01 Nicotine (Nicoderm) 7 mg TD Q24H PRN; Protocol PRN Reason: nicotine craving Stop: 04/05/17 15:43 - Imaging and Cardiology Chest Xray: report reviewed Echo: report reviewed - EKG Interpretation EKG results cardiology: personally reviewed (ECG with SR, HR 78, incomplete BBB , mild ST elevation V1, V2, V3.), other (Telemetry reviewed with average HR 84, sinus rhythm. PVCs and PACs noted. Runs of atrial tachycardia noted.) Consult Discharge Plan - Plan Referrals: [facility] [Primary Care Provider] -
[2016-10-05] MEDS ORDERED: methylPREDNISolone 125 MG/2 ML VIAL IVP ONE (09:10)
--- NOTE | 2016-10-05 09:52 | Vascular/Endovas Progress Note ---
Date of Encounter: 10/05/16 Time of Encounter: 06:30 - Assessment and plan (1) Leg ulcer, left Current Visit: Yes Status: Acute MILADYS 0.76 sufficient for healing Ordered Unna boot of LLE elevation of LEs Podiatry consult placed Local wound care I examined this patient and my medical decision-making was reviewed with the Resident Physician. I agree with the documented findings, disposition and treatment plan as described except to the extent set forth below. Patient was seen and evaluated on morning rounds. He has stable left leg ulcer. This will require aggressive leg elevation, Unna boot with extrinsic compression making this a [place] B2. I will be glad to follow him along the wound clinic. Michael Ferrer MD FACS Qualifiers: Non-pressure ulcer stage: unspecified non-pressure ulcer stage Qualified Code(s): L97.929 - Non-pressure chronic ulcer of unspecified part of left lower leg with unspecified severity (2) DVT prophylaxis Current Visit: Yes Status: Acute Heparin subq - Subjective Interval history: Patient reports improved pain in the LLE. Denies fever, chills, nausea, anorexia. Vital Signs, Last 4 Hours Temp Pulse Resp BP Pulse Ox 10/05/16 06:32 97.4 F L 84 14 118/64 94 - Physical Examination General: Present: Conversant, No Apparent Distress, Well developed HEENT: Present: Atraumatic, Normocephaly, Trachea midline Vascular: Present: Pulse, absent, Edema, Other (Venous stasis changes L >> R) Skin: Present: Wound/ulcer(s) (Venous insufficiency ulcer on L medial ankle, ) Results 10/05/16 01:05 10/05/16 01:05 Lab Results, Last 24 hours 10/04/16 10/05/16 10/05/16 17:46 01:05 01:05 WBC 9.9 Hgb 14.8 Hct 46.8 Plt Count 166 Sodium 136 Potassium 5.0 H Chloride 91 L Carbon Dioxide 38 H BUN 15 Creatinine 0.68 L Glucose 125 H Calcium 8.7 Troponin I 0.02 10/05/16 01:05 WBC Hgb Hct Plt Count Sodium Potassium Chloride Carbon Dioxide BUN Creatinine Glucose Calcium Troponin I 0.02 Consult Discharge Plan - Plan Referrals: [facility] [Primary Care Provider] -
--- NOTE | 2016-10-05 14:47 | Electrocardiograph Report ---
[place] [id number] Test Date: 2016-10-04 Pat Name: Cordell Nesbitt Department: 0 Room: 2NE17 Gender: M President And Chief Operating Officer: Irma : 1950 Requested By: Franci Brooks Order Number: [id number] Reading MD: Wiley Turner MD Measurements Intervals [place] Rate: 77 P: 75 LA: 139 QRS: 82 QRSD: 110 T: 17 QT: 380 QTc: 411 Interpretive Statements SINUS RHYTHM WITH SINUS ARRHYTHMIA Poor R wave progression Electronically Signed On 10-05-2016 14:45:37 EDT by Wiley Turner MD
--- NOTE | 2016-10-05 16:23 | Discharge Summary ---
Date of Encounter: 10/05/16 Time of Encounter: 16:20 - Discharge Diagnosis (1) Peripheral vascular disease Priority: Secondary Status: Acute (2) Acute exacerbation of chronic obstructive airways disease Priority: Primary Status: Acute (3) Cellulitis Priority: Secondary Status: Acute Qualifiers: Site of cellulitis: extremity Site of cellulitis of extremity: lower extremity Laterality: left Qualified Code(s): L03.116 - Cellulitis of left lower limb (4) Leg ulcer, left Priority: Secondary Status: Acute Qualifiers: Non-pressure ulcer stage: unspecified non-pressure ulcer stage Qualified Code(s): L97.929 - Non-pressure chronic ulcer of unspecified part of left lower leg with unspecified severity (5) MAC (obstructive sleep apnea) Priority: Secondary Status: Acute (6) Nicotine abuse Priority: Secondary Status: Chronic (7) DVT prophylaxis Priority: Secondary Status: Acute - Discharge Medications Home Medications: Allopurinol [Zyloprim 100 MG] 100 mg PO DAILY 10/04/16 [History] Atorvastatin Calcium [Lipitor] 20 mg PO HS 10/04/16 [History] Ipratropium/Albuterol Neb [Duoneb] 3 ml IH Q6HR PRN 10/04/16 [History] Losartan Potassium [Cozaar] 50 mg PO BID 10/04/16 [History] Mupirocin [Bactroban Oint] 1 appl TP AD 10/04/16 [History] Tacrolimus [Protopic] 1 appl TP AD 10/04/16 [History] hydroCHLOROthiazide [Hydrochlorothiazide] 12.5 mg PO DAILY 10/04/16 [History] predniSONE [PredniSONE] 5 mg PO AD 10/04/16 [History] Allergies/Adverse Reactions: 3 Allergy/AdvReac Type Severity Reaction Status Date / Time amitriptyline Allergy Anaphylaxis Verified 10/04/16 14:24 gabapentin Allergy Anaphylaxis Verified 10/04/16 14:24 pravastatin Allergy Anaphylaxis Verified 10/04/16 14:24 Procedures/tests Complete & Pending: Procedures Performed prior 72 hours Category Date Time Status MILADYS [EV ankle brachial index] Stat Y 10/04/16 15:09 Completed ECG 12 lead ECG [ECG] Routine Y 10/04/16 12:09 Completed Date of admission: 10/04/16 13:40 Primary care physician: [facility] Consults: 10/04/16 15:21 Consult to Vascular Surgery [CONS] Routine Consulting Provider: Vascular Surgery [facility] Reason for Consult: history of PVD, Left lower extremity cellulitis, left lower extremity cyanosis with decreased pulses Call Completed: Yes 10/04/16 15:52 Consult to Respiratory Therapy [CONS] Routine Reason for Consult: manage BiPAP at night. Call Completed: No 10/04/16 19:18 Consult to Meals On Wheels Driver [CONS] Routine Reason for SW Consult: d/c issues r/t where does he live and how will he get there. 10/05/16 09:46 Consult to Podiatry [CONS] Routine Consulting Provider: [facility] Reason for Consult: Foot care Call Completed: Yes Discharging clinician: Franci Brooks Anticipated date of discharge: 10/05/16 - Patient Status Disposition: Left Against Medical Advice Condition: Fair - Discharge Instructions Follow Up With: [facility] [Primary Care Provider] - Hospital course: Mr. Nesbitt is a 66 year old male admitted for acute on chronic COPD exacerbation nicotine smoking and left lower extremity cellulitis. There was concern on admission if he had reduced circulation in his left lower extremity. Cardiology and vascular surgeon were consulted and they felt it is chronic and no new treatment suggested. We tried to put patient on BiPAP give him IV antibiotics and suggested to use IV steroid management as Mucinex however patient refused to stay. He was assessed by myself and nursing staff and appeared in for difficulty of mine and new exactly where he was and oriented to time place and person. He was also made aware that if he would leave it can jeopardize his care and may result in increased mortality or morbidity risk especially respiratory failure. He was asked multiple times to stay however patient decided to leave AMA. He is advised to return to hospital in case if he changes his mind or he can go to other ERs also. Patient was able to verbalize back. His questions answered. - Time Spent with Patient Total time spent providing and/or coordinating discharge services: Greater than 30 minutes - Constitutional Vitals: Temp Pulse Resp BP Pulse Ox 97.4 F L 84 14 118/64 94 10/05/16 06:32 10/05/16 06:32 10/05/16 06:32 10/05/16 06:32 10/05/16 06:32 General appearance: Present: A&O X 3, no acute distress, answers questions appropriately - Head Head exam: Present: atraumatic, normocephalic - Eye Eye exam: Present: PERRL, conjuntiva pink, sclera anicteric Pupils: Present: PERRL - Neck Neck exam general surgery: Present: supple, trachea midline. Absent: lymphadenopathy - Respiratory Respiratory exam: Present: decreased breath sounds, rhonchi, wheezes. Absent: accessory muscle use, rales - Cardiovascular Cardiovascular exam: Present: RRR, +S1, +S2. Absent: diastolic murmur, gallop, rubs, systolic murmur - GI/Abdominal GI/Abdominal exam: Present: normal bowel sounds, soft, no peritoneal signs. Absent: distended, tenderness - Extremities Exam Extremities exam: Present: warm, radial pulses palpable and symmetrical. Absent : calf tenderness, cyanotic, pedal edema - Neurological Exam Neurological exam: Present: CN II-XII intact, oriented X3, no focal deficits. Absent: pronater drift, facial droop, speech deficit - Skin Skin exam: Present: dry, intact
--- NOTE | 2016-10-06 18:19 | Arterial Study Report ---
LE Arterial Physiologic Study Patient Name:Cordell Nesbitt Order Number:[id number] Procedure Date:10/04/2016 Date:1950Age:66 yrs Gender:Male Rt.BP:126 / mmHgHeart Rate: Location:[facility] Room #: 2NE17 [place] Alarm Installer:Diann Greenberg RDCS Referring MD:Osman Johnson DO esthetician:[facility] Reading MD:Michael Ferrer MD Primary Indications:PVD, Cyanotic extremities Risk Factors Yes/No Hypertension Yes Smoking Current Yes Impressions: 1) Right lower extremity waveform demonstrates moderately diminished hemodynamics. 2) Right Ankle Brachial Index is normal. 1) Left lower extremity waveform demonstrates moderately diminished hemodynamics. 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 Findings LE Arterial Physiologic Exam: PVR: Right: The PVR waveforms are moderately diminished in the right ankle. Left: The PVR waveforms are moderately diminished in the left ankle. Prior Study: No prior study available for comparison. Segmental Pressures Side Location Pressure Index Result Right Posterior Tibial 122 0.97 Normal Right Dorsalis Pedis 107 0.85 Mildly Diminished Left Posterior Tibial 96 0.76 Moderately Diminished Left Dorsalis Pedis 75 0.60 Moderately Diminished Ankle Brachial Index Right Systolic Diastolic MILADYS Brachial 126 0.97 Dorsalis Pedis 107 0.85 Posterior Tibial 122 0.97 Left Systolic Diastolic MILADYS Brachial 0.76 Dorsalis Pedis 75 0.60 Posterior Tibial 96 0.76 Updated by Michael Ferrer MD on 10/06/2016 6:15:10 PM with Status of Final electronically signed on 10/06/2016 6:15:34 PM with status of Final
== END 2016-10-05 10:57 | disposition left against medical advice (07) | DRG 191 ==
LOC: EMEROO 11:44 → 2NENU 13:40
PROVIDERS: ADMIT Internal Medicine; ATTEND Internal Medicine